=== PATIENT | male | born 1995 | race Caucasian/White ===

== ENCOUNTER 2024-02-21 19:53 | Emergency (ER) | payer OTHER, SELFPAY ==
[2024-02-21 20:04] VITALS: BP 143/101; PULSE 90; RESP 16; TEMP 36.6; O2SAT 97; BMI 24.3
--- NOTE | 2024-02-21 20:28 | ED.WOUNDLAC ---
HPI - Wound/Laceration General Chief Complaint: Laceration/Wound Stated Complaint: Hit head on car while in pit at work Time Seen by Provider: 02/21/24 19:55 History of Present Illness HPI narrative: This 29-year-old male comes in with an injury to his head that occurred at work prior to arrival. 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 He stood up and hit his head on an air tank and has a small laceration on the top of his head. He did not have loss of consciousness. He does not report a headache. His last tetanus vaccination was 9-10 years ago. Related Data Previous Rx's ?Medication ?Instructions ?Recorded albuterol sulfate 90 mcg/actuation 2 inh inhalation Q6-8H PRN 01/16/24 aerosol inhaler bronchospasm #6.7 grams dextroamphetamine-amphetamine 20 20 mg PO .noon #30 tabs 01/16/24 mg tablet (Adderall) dextroamphetamine-amphetamine 20 20 mg PO .noon #30 tabs 01/16/24 mg tablet (Adderall) dextroamphetamine-amphetamine 20 20 mg PO .noon #30 tabs 01/16/24 mg tablet (Adderall) dextroamphetamine-amphetamine ER 25 mg PO QAM #30 caps 01/16/24 25 mg 24hr capsule,extend release (Adderall XR) dextroamphetamine-amphetamine ER 25 mg PO QAM #30 caps 01/16/24 25 mg 24hr capsule,extend release (Adderall XR) dextroamphetamine-amphetamine ER 25 mg PO QAM #30 caps 01/16/24 25 mg 24hr capsule,extend release (Adderall XR) Allergies Allergy/AdvReac Type Severity Reaction Status Date / Time cats Allergy Mild Sneezing, Uncoded 01/16/24 13:52 asthma trigger dogs Allergy Mild Sneezing, Uncoded 01/16/24 13:52 asthma trigger Dust Allergy Mild Asthma Uncoded 01/16/24 13:52 trigger Review of Systems Status of ROS: Reports: 10 or more systems reviewed and unremarkable except as noted in History and below Narrative: Constitutional: No fevers, no weight gain or loss. Eyes: No discharge. No vision changes. HENT: No congestion, no sore throat, no ear pain. Cardiovascular: No chest pain, no palpitations. Respiratory: No shortness of breath, no wheezes, no cough. Gastrointestinal: No abdominal pain, no vomiting, no diarrhea. Genitourinary: No dysuria, no hematuria. Musculoskeletal: Normal range of motion. Skin: No rashes, no pruritis. Neurological: No dizziness, weakness, sensory change, speech change. Endo/Heme/Allergies: No bruising or bleeding. No polydipsia. Pysch: no suicidality, no anxiety, no insomnia. All other systems reviewed and are negative. [facility] Medical History (Updated 02/21/24 @ 20:34 by Dwight Ann MD) Anxiety and depression ?F41.9 - Anxiety disorder, unspecified (ICD-10) ?F32.A - Depression, unspecified (ICD-10) Family history of secondary lung cancer ?Z80.1 - Family history of malignant neoplasm of trachea, bronchus and lung (ICD-10) Family history of essential hypertension ?Z82.49 - Family history of ischemic heart disease and other diseases of the circulatory system (ICD-10) Family history of mental disorder ?Z81.8 - Family history of other mental and behavioral disorders (ICD-10) Surgical History (Updated 11/23/21 @ 09:21 by Jason Roe PA-C) History of skin graft ?Z94.5 - Skin transplant status (ICD-10) Family History (Updated 11/18/21 @ 16:03 by Mark Cuadra) Other High blood pressure Lung cancer Mental disorder Social History (Updated 11/18/21 @ 16:03 by Makr Cuadra) Narrative: Smoker Smoking Status: Current every day smoker What tobacco products do you use: cigarettes Smoking packs per day: 1 Smoking cigarettes per day: 20.0 Do you use any of these nicotine containing products: Smokeless Tobacco How often do you have a drink containing alcohol: never AUDIT-C Alcohol total score: 0 Non-prescribed substance use: denies use Little interest or pleasure in doing things: not at all Feeling down, depressed, or hopeless: not at all Exam Narrative: Exam Narrative: Constitutional: Well-developed, well-nourished, no acute distress. HEENT: Small 1 cm laceration on the top of his head with no surrounding erythema or hematoma. Neck: Normal range of motion. Nontender. Supple. Heart: Regular. No murmurs. Normal rate. Intact distal pulses. Lungs: Clear to auscultation. No chest discomfort. No wheezes, rhonchi, or rales. Abdomen: Normal bowel sounds. Nontender. No rebound tenderness. Genitalia: Deferred. Back: No midline tenderness. Normal range of motion. Extremities: Normal range of motion. No injury. Skin: Intact. No rash. Warm. No erythema or pallor. Neurologic: No altered sensation. No weakness. Alert and oriented. Psychiatric: No suicidality. No anxiety or depression. No insomnia. Nursing notes and vitals signs are reviewed. Const: Vital Signs, click to edit/add: Vital Signs - 24 hr 02/21/24 20:04 Temperature 97.9 F Pulse Rate [Pulse Oximeter] 90 Respiratory Rate 16 Blood Pressure [Ri ght Upper Arm] 143/101 H Pulse Oximetry 97 Oxygen Delivery Me thod Room Air Course Vital Signs Vital signs: Initial Vital Signs Temperature 97.9 F 02/21/24 20:04 Temperature Source Temporal Artery Scan 02/21/24 20:04 Pulse Rate 90 02/21/24 20:04 Respiratory Rate 16 02/21/24 20:04 Blood Pressure 143/101 H 02/21/24 20:04 Blood Pressure Mean 115 H 02/21/24 20:04 Blood Pressure Position High-Fowlers 02/21/24 20:04 Pulse Oximetry 97 02/21/24 20:04 Oxygen Delivery Method Room Air 02/21/24 20:04 Vital Signs Temperature 97.9 F 02/21/24 20:04 Pulse Rate 90 02/21/24 20:04 Respiratory Rate 16 02/21/24 20:04 Blood Pressure 143/101 H 02/21/24 20:04 Pulse Oximetry 97 02/21/24 20:04 Oxygen Delivery Method Room Air 02/21/24 20:04 Temperature 97.9 F 02/21/24 20:04 Pulse Rate 90 02/21/24 20:04 Respiratory Rate 16 02/21/24 20:04 Blood Pressure 143/101 H 02/21/24 20:04 Pulse Oximetry 97 02/21/24 20:04 Oxygen Delivery Method Room Air 02/21/24 20:04 MDM - Wound/Laceration MDM Narrative Medical decision making narrative: This patient has a laceration on the top of his head measuring about 1 cm. The skin edges are nicely approximated. The wound was cleansed and then repaired with Dermabond. Instructions regarding wound care were given. The patient received a tetanus vaccination here. Discharge Plan Discharge Clinical Impression: Laceration Patient Disposition: Home, Self-Care Condition: Improved Additional Instructions: Use [id number] medicines as needed and directed. Return to normal activity as tolerated. Follow up with MD return if worsening. Prescriptions: No Action albuterol sulfate 90 mcg/actuation HFA aerosol inhaler 2 inh inhalation Q6-8H PRN (Reason: bronchospasm) Qty: 6.7 5RF dextroamphetamine-amphetamine [Adderall XR] 25 mg capsule,extended release 24hr 25 mg PO QAM Qty: 30 0RF dextroamphetamine-amphetamine [Adderall XR] 25 mg capsule,extended release 24hr 25 mg PO QAM Qty: 30 0RF dextroamphetamine-amphetamine [Adderall XR] 25 mg capsule,extended release 24hr 25 mg PO QAM Qty: 30 0RF dextroamphetamine-amphetamine [Adderall] 20 mg tablet 20 mg PO .noon Qty: 30 0RF dextroamphetamine-amphetamine [Adderall] 20 mg tablet 20 mg PO .noon Qty: 30 0RF dextroamphetamine-amphetamine [Adderall] 20 mg tablet 20 mg PO .noon Qty: 30 0RF Follow Up/Referrals: Jason Roe PA-C [Primary Care Provider] - Stand Alone Forms: T2 Systemseal Info Instructions
[2024-02-21] MEDS: TETANUS/DIPHTH/PERTUSSIS 0.5 ML SYRINGE IM (20:49)
== END 2024-02-21 21:13 | disposition home or self-care (01) ==
LOC: ED 20:50
PROVIDERS: Emergency Provider Emergency Medicine Emergency Medical Services; PCP Physician Assistant Medical
DX: S01.01XA Laceration without foreign body of scalp, initial encounter (principal); W22.09XA Striking against other stationary object, initial encounter; Y99.0 Civilian activity done for income or pay
CPT/HCPCS: 12001; 90471; 90715; 99283; 99284